=== PATIENT | male | born 1985 | race Caucasian/White ===

== ENCOUNTER 2023-10-21 07:53 | Emergency (ER) | payer OTHER ==
[~2023-10-21] VITALS: Ht 175.3 cm; Wt 74.8 kg
[2023-10-21 07:53] VITALS: BP 141/84; PULSE 92; RESP 18; TEMP 98.4; O2SAT 98
[2023-10-21 08:40] LABS: BASOPHIL % 0.1 % (0.0-0.2); HEMATOCRIT(ML) 51.3 % (37.0-53.0); HEMOGLOBIN 16.9 g/dL (13.9-16.3); IG % 0.3 % (0.00-0.50); LYMPHOCYTES # 0.83 10^3/uL1 (1.0-4.8); LYMPHOCYTES % 8.9 % (24.0-44.0); MEAN CORP HGB 28.5 pg (26-34); MEAN CORP HGB CONCENTRATION 32.9 g/dL (33-36.5); MEAN CORP VOLUME 86.5 fL (78-100); MONOCYTES # 0.8 10^3/uL (0.3-0.8); MONOCYTES % 8.4 % (5.0-12.0); NEUTROPHIL # 7.7 10^3/uL (1.8-7.7); NEUTROPHILS % 82.3 % (41.0-85.0); RED BLOOD CELL 5.93 10^6/uL (4.50-5.90); RED CELL DISTRIBUTION WIDTH 12.9 % (11.5-14.5); WHITE BLOOD CELL 9.3 10^3/uL (4.5-11.0)
[2023-10-21 08:42] LABS: BILIRUBIN,URINE 1+ (NEGATIVE); LEUKOCYTE ESTERASE ,URINE NEGATIVE (NEGATIVE); NITRATE,URINE NEGATIVE (NEGATIVE); UROBILINOGEN,URINE 0.2 E.U./dL (0.2)
[2023-10-21] MEDS ORDERED: TORADOL ONE (08:42)
[2023-10-21] MEDS ORDERED: PHENERGAN ONE (08:50)
[2023-10-21 08:54] LABS: INR 1.1; PROTHROMBIN PROTIME 11.3 SEC (9.7-11.6)
[2023-10-21] MEDS: TORADOL IV STA (08:56)
[2023-10-21] MEDS: PHENERGAN IV STA (08:56)
[2023-10-21 08:57] LABS: UA COLOR YELLOW
[2023-10-21 09:01] LABS: ALBUMIN(ML) 3.8 g/dL (3.4-5.0); ALBUMIN/GLOBULIN RATIO 1.027; BUN/CREATININE RATIO 9.3 (10.0-20.0); CALCIUM 8.9 mg/dL (8.4-10.5); CARBON DIOXIDE 28.8 mmol/L (20.0-32); CREATININE SERUM 1.29 mg/dL (0.59-1.40); POTASSIUM 3.8 mmol/L (3.6-5.2)
[2023-10-21 09:12] LABS: APPEARANCE,URINE CLEAR
[2023-10-21 09:34] VITALS: BP 123/67; PULSE 79; RESP 18; TEMP 98.4; O2SAT 98
[2023-10-21] MEDS ORDERED: KETO10TA PO (10:07)
[2023-10-21] MEDS ORDERED: ONDA-226 PO (10:07)
[2023-10-21 10:19] VITALS: BP 121/69; PULSE 74; RESP 18; TEMP 98.4; O2SAT 98
== END 2023-10-21 10:19 | disposition home or self-care (01) ==
LOC: ER 07:53
DX: K52.9 Noninfective gastroenteritis and colitis, unspecified (principal); F17.210 Nicotine dependence, cigarettes, uncomplicated
CPT/HCPCS: 99285; 74177; 96374; 96375; 80053; 85025; 36415; 81001; 83690; 85610; 85730; J1885; J2550; Q9965